=== PATIENT | female | born 1990 | race Caucasian/White ===

== ENCOUNTER 2024-08-26 12:37 | Emergency (ER) | payer OTHER, SELFPAY ==
[2024-08-26 12:41] VITALS: BP 177/102; PULSE 114; RESP 16; O2SAT 96; BMI 32.5
--- NOTE | 2024-08-26 12:47 | EKG_ITS ---
[address] [address] Test Date: 2024-08-26 Pat Name: Autumn Coreas Department: Room: Gender: Female Cell Tester: SAE : 1990 Requested By: Order Number: [id number] Reading MD: Easton Bella MD Measurements Intervals [place] Rate: 93 P: 30 RI: 124 QRS: 33 QRSD: 90 T: -3 QT: 380 QTc: 472 Interpretive Statements Normal sinus rhythm with sinus arrhythmia Electronically Signed On 08-26-2024 16:36:14 PDT by Easton Bella MD
--- NOTE | 2024-08-26 12:49 | DI.RAD.S_ITS ---
PROCEDURE: XR CHEST 1V INDICATIONS: Chest Pain TECHNIQUE: One view of the chest was acquired. COMPARISON: None. FINDINGS: Surgical changes and devices: None. Lungs and pleura: Lungs are clear. No pleural effusions or pneumothorax. Mediastinum: Mediastinal contours appear normal. Heart size is normal. Bones and chest wall: No suspicious bony lesions. Overlying soft tissues appear unremarkable. IMPRESSION: No acute cardiopulmonary abnormality is seen. Dictated by: Andrae Head M.D. on 08/26/2024 at 13:20 Approved by: Andrae Head M.D. on 08/26/2024 at 13:20
[2024-08-26 13:00] VITALS: BP 155/97; PULSE 87; RESP 19; O2SAT 98
[2024-08-26 13:08] LABS: Add Manual Diff / Slide Review NO; Basophils Absolute Auto 0 /uL (0-100); Basophils Percent Auto 0.2 % (0-2); Eosinophils Absolute Auto 100 /uL (0-450); Eosinophils Percent Auto 0.6 % (2-4); Hematocrit 42.5 % (36-46); Lymphocytes Absolute Auto 2600 /uL (1100-4500); Lymphocytes Percent Auto 25.1 % (25-40); Mean Corpuscular HGB Conc 35.3 % (30-36); Mean Corpuscular Hemoglobin 30.8 PG (26-34); Mean Corpuscular Volume 87.2 fL (80-100); Monocytes Absolute Auto 700 /uL (0-900); Monocytes Percent Auto 6.4 % (3-14); Neutrophils Absolute Auto 7100 /uL (1500-7000); Neutrophils Percent Auto 67.7 % (50-75); Platelet Count 338 X10^3/uL (150-400); Red Blood Cell Count 4.88 X10^6/uL (4.0-5.2); Red Cell Distribution Width 12.6 % (11.6-14.8); White Blood Cell Count 10.4 X10^3/uL (4.5-11.0)
--- NOTE | 2024-08-26 13:12 | PC.NURSE ---
Pt lying back in [facility]. Appears in NAD. Says that she has slightly elevated cholesterol. Palpitations are intermittent. Not experiencing them now.
[2024-08-26 13:15] LABS: INR 1.1 (0.9-1.3); Prothrombin Time 12.2 SECONDS (9.4-12.5)
[2024-08-26 13:18] LABS: PTT Partial Thromboplastin Tim 40 SECONDS (25.1-36.5)
[2024-08-26 13:19] LABS: Lactate (Lactic Acid) 0.8 mmol/L (0.7-2.1)
[2024-08-26 13:20] LABS: Alanine Aminotransferase 46 IU/L (<35); Albumin 5.2 g/dL (3.5-5.0); Albumin Globulin Ratio 1.4 (1.0-2.8); Alkaline Phosphatase 45 U/L (38-126); Aspartate Aminotransferase 34 IU/L (14-36); Blood Urea Nitrogen 14 mg/dL (7-17); Calcium 9.6 mg/dL (8.4-10.2); Carbon Dioxide 25 mmol/L (22-32); Chloride 104 mmol/L (98-107); Creatine Kinase 179 U/L (30-135); Estimated Glomerular Filt Rate > 60 mL/min (>60); Globulin 3.8 g/dL (1.7-4.1); Glucose 109 mg/dL (70-99); HEMOLYSIS 19 (0-50); Lipase 87 U/L (23-300); Magnesium 2.1 mg/dL (1.6-2.3); Potassium 3.3 mmol/L (3.4-5.1); Sodium 139 mmol/L (137-145)
[2024-08-26 13:30] VITALS: BP 145/78; PULSE 68; RESP 16; O2SAT 99
[2024-08-26 13:31] LABS: NT-proBNP (BNP-Adult 18+) < 20 pg/mL (<125); Troponin I < 0.012 ng/mL (0.01-0.034)
--- NOTE | 2024-08-26 14:09 | ED.CHESTPAIN ---
HPI - Chest Pain <Rocio Llanos PA-C - Last Filed: 08/26/24 16:39> General Chief Complaint: Chest Pain Stated Complaint: Feels like she is having a heart attack Time Seen by Provider: 08/26/24 14:08 Source: patient Mode of arrival: Ambulatory Limitations: no limitations History of Present Illness HPI narrative: Ms. Coreas is a pleasant 34-year-old female with a past medical history of elevated cholesterol, on a GLP 1 for weight loss who presents to the emergency department for concern of a heart attack x 5 days. Patient states on Thursday she developed palpitations while she was sitting at her desk at work and she felt like she was having a heavy pain with taking a deep breath. Reports that she has also been experiencing some upper back/neck pain, feeling her bras too tight, headache. Her symptoms were worse on Thursday but they have continued to be intermittent since then and she also noticed that she started to have some belching and was worried that all these symptoms could be related to a heart attack given her history of elevated cholesterol. She denies shortness of breath but states that sometimes the pain/palpitations make it feel like her breath has been taken away. She denies abdominal pain, nausea, vomiting, diarrhea, constipation, dysuria, fevers, chills, cough, sore throat. She denies history of hormone use, recent travel, lower extremity pain or swelling, VTE. She does not smoke cigarettes but she does smoke marijuana but has stopped doing so this week because of her symptoms. She also was drinking coffee when her symptoms started on Thursday but her symptoms continued despite stopping her caffeine intake as well. Related Data Allergies Allergy/AdvReac Type Severity Reaction Status Date / Time No Known Drug Allergies Allergy Verified 08/26/24 12:41 Review of Systems <Rocio Llanos PA-C - Last Filed: 08/26/24 16:39> Review of Systems ROS Unobtainable: All systems reviewed & are unremarkable except as noted in HPI and below Patient History <Rocio Llanos PA-C - Last Filed: 08/26/24 16:39> Social History Smoking Status: Never smoker Smoking Status: Never smoker Exam <Rocio Llanos PA-C - Last Filed: 08/26/24 16:39> Narrative Exam Narrative: GENERAL: 34 year old patient appears stated age. Well-developed patient, in no acute distress. HEAD: Atraumatic. Normocephalic. NECK: Trachea midline. Cervical ROM intact. No midline tenderness. CARDIOVASCULAR: Regular rate and rhythm. RESPIRATORY: ?Nonlabored respirations. ?Speaking in clear, full sentences. ?Clear to auscultation. Breath sounds equal bilaterally. No wheezes, rales, or rhonchi. ? GASTROINTESTINAL: Abdomen soft, non-tender, nondistended. EXTREMITIES: No edema or joint tenderness. NEURO: AOx3. ?Clear speech. ?Moves all 4 extremities appropriately. SKIN: No rash or erythema of visible areas Initial Vital Signs Initial Vital Signs: Vital Signs Pulse Rate 114 H 08/26/24 12:41 Respiratory Rate 16 08/26/24 12:41 Blood Pressure 177/102 H 08/26/24 12:41 Pulse Oximetry 96 08/26/24 12:41 Oxygen Delivery Method Room Air 08/26/24 12:41 <Janine Ponce DO - Last Filed: 08/26/24 18:21> Initial Vital Signs Initial Vital Signs: Vital Signs Pulse Rate 114 H 08/26/24 12:41 Respiratory Rate 16 08/26/24 12:41 Blood Pressure 177/102 H 08/26/24 12:41 Pulse Oximetry 96 08/26/24 12:41 Oxygen Delivery Method Room Air 08/26/24 12:41 Scores <ANDREE Nguyen Last Filed: 08/26/24 16:39> HEART Score Heart Score history: Slightly Suspicious Heart Score EKG: Normal Heart Score Age: < 45 years old Heart Score risk factors: 1-2 risk factors Heart Score troponin: < or = to normal limit Heart Score Total: 1 PERC Score Age greater than or equal to 50 years: No Heart rate greater than or equal to 100 bpm: Yes Room Air O2 Sat less than 95%: No Unilateral leg swelling: No Recent trauma or surgery: No Hemoptysis: No Prior PE or DVT: No Hormone Use: No Total PERC Score: 1 <DO Jesenia Cuba Last Filed: 08/26/24 18:21> HEART Score Heart Score Total: 1 PERC Score Total PERC Score: 1 Course <ANDREE Nguyen Last Filed: 08/26/24 16:39> Orders Ordered: ED Orders 08/26/24 12:49 XR chest 1V Stat EKG-12 Lead Stat RT Consult Eval and Treat NOW 08/26/24 13:00 Complete Blood Count AUTO DIFF Stat Comprehensive Metabolic Panel Stat D Dimer Stat Lactate (Lactic Acid) Stat Lipase Stat Magnesium Stat NT-proBNP (BNP-Adult 18+) Stat PTT Partial Thromboplastin Fernandez Stat Prothrombin Time INR Stat TSH [Thyroid Stimulating Hormone] Stat Troponin & CK Cardiac Panel Stat 08/26/24 15:09 Troponin I Stat Discontinued Medications Aspirin (Aspirin 81 Mg Chew Tab) 324 mg PO NOW ONE Stop: 08/26/24 12:50 Last Admin: 08/26/24 13:14 Dose: Not Given Documented By: Sodium Chloride (Normal Saline 0.9%) 1,000 mls @ 1,000 mls/hr IV BOLUS ONE Stop: 08/26/24 15:21 Last Infusion: 08/26/24 15:29 Dose: Infused Documented By: Admin: 08/26/24 14:30 Dose: 1,000 mls/hr Documented By: JOHANNA Potassium Chloride (Potassium Chloride 20 Meq Tab) 40 meq PO NOW ONE Stop: 08/26/24 14:23 Last Admin: 08/26/24 14:32 Dose: 40 meq Documented By: JOHANNA Vital Signs Vital signs: Vital Signs - 8 hr 08/26/24 12:41 08/26/24 13:00 08/26/24 13:30 Temperature Pulse Rate 114 H 87 68 Respiratory Rate 16 19 16 Blood Pressure 177/102 H 155/97 H 145/78 H Pulse Oximetry 96 98 99 Oxygen Delivery Method Room Air Room Air Room Air 08/26/24 15:30 08/26/24 16:44 Temperature 98.6 F Pulse Rate 88 88 Respiratory Rate 16 20 Blood Pressure 130/80 131/82 Pulse Oximetry 99 100 Oxygen Delivery Method Room Air Room Air <Janine Ponce DO - Last Filed: 08/26/24 18:21> Orders Ordered: ED Orders 08/26/24 12:49 XR chest 1V Stat EKG-12 Lead Stat RT Consult Eval and Treat NOW 08/26/24 13:00 Complete Blood Count AUTO DIFF Stat Comprehensive Metabolic Panel Stat D Dimer Stat Lactate (Lactic Acid) Stat Lipase Stat Magnesium Stat NT-proBNP (BNP-Adult 18+) Stat PTT Partial Thromboplastin Fernandez Stat Prothrombin Time INR Stat TSH [Thyroid Stimulating Hormone] Stat Troponin & CK Cardiac Panel Stat 08/26/24 15:09 Troponin I Stat Discontinued Medications Aspirin (Aspirin 81 Mg Chew Tab) 324 mg PO NOW ONE Stop: 08/26/24 12:50 Last Admin: 08/26/24 13:14 Dose: Not Given Documented By: Sodium Chloride (Normal Saline 0.9%) 1,000 mls @ 1,000 mls/hr IV BOLUS ONE Stop: 08/26/24 15:21 Last Infusion: 08/26/24 15:29 Dose: Infused Documented By: Admin: 08/26/24 14:30 Dose: 1,000 mls/hr Documented By: SB Potassium Chloride (Potassium Chloride 20 Meq Tab) 40 meq PO NOW ONE Stop: 08/26/24 14:23 Last Admin: 08/26/24 14:32 Dose: 40 meq Documented By: SB Vital Signs Vital signs: Vital Signs - 8 hr 08/26/24 12:41 08/26/24 13:00 08/26/24 13:30 Temperature Pulse Rate 114 H 87 68 Respiratory Rate 16 19 16 Blood Pressure 177/102 H 155/97 H 145/78 H Pulse Oximetry 96 98 99 Oxygen Delivery Method Room Air Room Air Room Air 08/26/24 15:30 08/26/24 16:44 Temperature 98.6 F Pulse Rate 88 88 Respiratory Rate 16 20 Blood Pressure 130/80 131/82 Pulse Oximetry 99 100 Oxygen Delivery Method Room Air Room Air MDM - Chest Pain <Rocio Llanos PA-C - Last Filed: 08/26/24 16:39> Medical Records Data Medical records narrative: None available for review Lab Data 08/26/24 13:00 08/26/24 13:00 Labs: Lab Results 08/26/24 08/26/24 Range/Units 13:00 15:09 WBC 10.4 (4.5-11.0) X10^3/uL RBC 4.88 (4.0-5.2) X10^6/uL Hgb 15.0 (12.0-16.0) g/dL Hct 42.5 (36-46) % MCV 87.2 (80-100) fL MCH 30.8 (26-34) PG MCHC 35.3 (30-36) % RDW 12.6 (11.6-14.8) % Plt Count 338 (150-400) X10^3/uL Neut % (Auto) 67.7 (50-75) % Lymph % (Auto) 25.1 (25-40) % [place] % (Auto) 6.4 (3-14) % Eos % (Auto) 0.6 L (2-4) % Baso % (Auto) 0.2 (0-2) % Neut # (Auto) 7100 H (4651-0942) /uL Lymph # (Auto) 2600 (8833-3602) /uL [place] # (Auto) 700 (0-900) /uL Eos # (Auto) 100 (0-450) /uL Baso # (Auto) 0 (0-100) /uL PT 12.2 (9.4-12.5) SECONDS INR 1.1 (0.9-1.3) APTT 40 H (25.1-36.5) SECONDS D-Dimer < 215 (<500) ng/ml Sodium 139 (137-145) mmol/L Potassium 3.3 L (3.4-5.1) mmol/L Chloride 104 (98-107) mmol/L Carbon Dioxide 25 (22-32) mmol/L BUN 14 (7-17) mg/dL Creatinine 0.56 (0.52-1.04) mg/dL Estimated GFR > 60 (>60) mL/min BUN/Creatinine Ratio 25.0 H (6-22) Glucose 109 H (70-99) mg/dL Lactate 0.8 (0.7-2.1) mmol/L Calcium 9.6 (8.4-10.2) mg/dL Magnesium 2.1 (1.6-2.3) mg/dL Total Bilirubin 1.0 (0.2-1.3) mg/dL AST 34 (14-36) IU/L ALT 46 H (<35) IU/L Alkaline Phosphatase 45 (38-126) U/L Total Creatine Kinase 179 H (30-135) U/L Troponin I < 0.012 < 0.012 (0.01-0.034) ng/mL NT-Pro-B Natriuret Pep < 20 (<125) pg/mL Total Protein 9.0 H (6.3-8.2) g/dL Albumin 5.2 H (3.5-5.0) g/dL Globulin 3.8 (1.7-4.1) g/dL Albumin/Globulin Ratio 1.4 (1.0-2.8) Lipase 87 (23-300) U/L TSH 0.756 (0.47-4.68) uIU/mL Imaging Data Chest x-ray: My Impression: On my independent interpretation chest x-ray reveals no infiltrate, no pneumothorax, no cardiomegaly Radiologist's Impression: PROCEDURE: XR CHEST 1V INDICATIONS: Chest Pain TECHNIQUE: One view of the chest was acquired. COMPARISON: None. FINDINGS: Surgical changes and devices: None. Lungs and pleura: Lungs are clear. No pleural effusions or pneumothorax. Mediastinum: Mediastinal contours appear normal. Heart size is normal. Bones and chest wall: No suspicious bony lesions. Overlying soft tissues appear unremarkable. IMPRESSION: No acute cardiopulmonary abnormality is seen. Dictated by: Andrae Head M.D. on 08/26/2024 at 13:20 Approved by: Andrae Head M.D. on 08/26/2024 at 13:20 ECG Data Interpretation: ECG reveals regular rate, regular rhythm, QTC of 472 MDM Narrative Medical decision making narrative: 34-year-old female with a past medical history of elevated cholesterol, on a GLP 1 for weight loss who presents to the emergency department for concern of a heart attack x 5 days. Patient states on Thursday she developed palpitations while she was sitting at her desk at work and she felt like she was having a heavy pain with taking a deep breath. Differential diagnosis includes but is not limited to ACS, PE, indigestion, panic disorder, electrolyte abnormality, dehydration, pneumonia endocrine disorder, etc. Patient was initially started in the main emergency department due to her symptoms however was transferred to the fast track area of the emergency department for further evaluation. On my examination, patient is in no acute distress, nontoxic appearing, vital signs appropriate however when she 1st presented to the ER she was hypertensive and tachycardic. Lungs are clear to auscultation bilaterally. Cardiac workup initiated, I will add on a 2 hour troponin, a D-dimer, a TSH. Labs reveal normal WBC count 10.4, hemoglobin 15.0, normal platelets 338. A PTT slightly prolonged at 40 seconds. Normal sodium 139, potassium is low at 3.3, BUN 14 creatinine 0.56. Glucose 109. Lactate negative 0.8. BNP negative. First troponin negative. CK slightly elevated 179, not consistent with rhabdomyolysis. We will treat patient with IV fluids and potassium at this time. TSH within normal limits, D-dimer negative, repeat troponin negative. Discussed workup with the patient, overall revealed mild dehydration, hypokalemia which was repleted. Recommended follow up with primary care doctor for possible Zio patch, further evaluation however we discussed very strict ED return precautions. She verbalized understanding of all information is agreeable with the plan. She is stable for discharge home, all vital signs within normal limits. <Janine Ponce, DO - Last Filed: 08/26/24 18:21> Lab Data Labs: Lab Results 08/26/24 08/26/24 Range/Units 13:00 15:09 WBC 10.4 (4.5-11.0) X10^3/uL RBC 4.88 (4.0-5.2) X10^6/uL Hgb 15.0 (12.0-16.0) g/dL Hct 42.5 (36-46) % MCV 87.2 (80-100) fL MCH 30.8 (26-34) PG MCHC 35.3 (30-36) % RDW 12.6 (11.6-14.8) % Plt Count 338 (150-400) X10^3/uL Neut % (Auto) 67.7 (50-75) % Lymph % (Auto) 25.1 (25-40) % [place] % (Auto) 6.4 (3-14) % Eos % (Auto) 0.6 L (2-4) % Baso % (Auto) 0.2 (0-2) % Neut # (Auto) 7100 H (2417-9188) /uL Lymph # (Auto) 2600 (4516-8472) /uL [place] # (Auto) 700 (0-900) /uL Eos # (Auto) 100 (0-450) /uL Baso # (Auto) 0 (0-100) /uL PT 12.2 (9.4-12.5) SECONDS INR 1.1 (0.9-1.3) APTT 40 H (25.1-36.5) SECONDS D-Dimer < 215 (<500) ng/ml Sodium 139 (137-145) mmol/L Potassium 3.3 L (3.4-5.1) mmol/L Chloride 104 (98-107) mmol/L Carbon Dioxide 25 (22-32) mmol/L BUN 14 (7-17) mg/dL Creatinine 0.56 (0.52-1.04) mg/dL Estimated GFR > 60 (>60) mL/min BUN/Creatinine Ratio 25.0 H (6-22) Glucose 109 H (70-99) mg/dL Lactate 0.8 (0.7-2.1) mmol/L Calcium 9.6 (8.4-10.2) mg/dL Magnesium 2.1 (1.6-2.3) mg/dL Total Bilirubin 1.0 (0.2-1.3) mg/dL AST 34 (14-36) IU/L ALT 46 H (<35) IU/L Alkaline Phosphatase 45 (38-126) U/L Total Creatine Kinase 179 H (30-135) U/L Troponin I < 0.012 < 0.012 (0.01-0.034) ng/mL NT-Pro-B Natriuret Pep < 20 (<125) pg/mL Total Protein 9.0 H (6.3-8.2) g/dL Albumin 5.2 H (3.5-5.0) g/dL Globulin 3.8 (1.7-4.1) g/dL Albumin/Globulin Ratio 1.4 (1.0-2.8) Lipase 87 (23-300) U/L TSH 0.756 (0.47-4.68) uIU/mL Discharge Plan Departure Patient Disposition: Home Clinical Impression: Heart palpitations, Hypokalemia Instructions: DI for Atypical Chest Pain, DI for Palpitations Activity Restrictions/Additional Instructions: Dear Collin Lyudmila, Thank you for coming to the emergency department. Today, we completed a cardiac workup. Sometimes, we do not always find the cause for your symptoms in one ER visit. The findings on your exam today and on your blood work and imaging is reassuring. At this time, it is not 100% certain what is causing your symptoms, but we feel you can be discharged from the emergency department. It is possible this may worsen or you may get better. Please, if you get worse or your symptoms change, return to the emergency department. Otherwise, please follow up with your primary care doctor in 1-2 days or any of the specialists we have provided or recommended. Please follow up with your primary care doctor within the next 2-3 days for ER follow-up. (If you do not have a PCP you can call [phone]. ?to schedule an appointment with an [facility] Primary Care Provider) IF YOU DEVELOP ANY NEW OR WORSENING SYMPTOMS, RETURN TO THE ER! Please read the attached instructions, they highlight more specific treatments and interventions for you at home. Thank you for letting me participate in your care, Rocio Llanos PA-C Stand Alone Forms: Patient Portal/API/Survey ED Sign-out <Janine Ponce DO - Last Filed: 08/26/24 18:21> Cosign ED Attending Han Attestation: I was immediately available in the department for consultation.
[2024-08-26] MEDS: SODIUM CHLORIDE 0.9% 1,000 ML 1000 ML IV (14:30)
[2024-08-26] MEDS: POTASSIUM CHLORIDE 20 MEQ TAB 40 MEQ PO (14:32)
[2024-08-26 14:49] LABS: D Dimer < 215 ng/ml (<500)
[2024-08-26 15:30] VITALS: BP 130/80; PULSE 88; RESP 16; O2SAT 99
[2024-08-26 15:34] LABS: Thyroid Stimulating Hormone 0.756 uIU/mL (0.47-4.68)
[2024-08-26 15:43] LABS: Troponin I < 0.012 ng/mL (0.01-0.034)
[2024-08-26 16:44] VITALS: BP 131/82; PULSE 88; RESP 20; TEMP 37; O2SAT 100
== END 2024-08-26 16:44 | disposition home or self-care (01) ==
PROVIDERS: Emergency Medicine; Emergency Provider Physician Assistant
DX: R00.2 Palpitations (principal); R07.9 Chest pain, unspecified; E87.6 Hypokalemia; R51.9 Headache, unspecified; M54.6 Pain in thoracic spine; M54.2 Cervicalgia
CPT/HCPCS: 36415; 71045; 80053; 82550; 83605; 83690; 83735; 83880; 84443; 84484; 85025; 85379; 85610; 85730; 93005; 96360; 99284